=== PATIENT | male | born 1955 | race Caucasian/White ===

== ENCOUNTER 2017-05-17 02:47 | Emergency (ER) | payer MEDICARE ==
[~2017-05-17] VITALS: Ht 175.3 cm; Wt 72.6 kg
[~2017-05-17 02:47] MED LIST: ASPI325 PO; CEPH500 PO; Cleocin HCl150 MG PO; Crutch1 EACH MISC; DIAZ5; HYDACE10B; HYDACE5 PO; IBUP600; Mobic15 MG PO; Mobic7.5 MG PO; NAPR500; NAPR500 PO; NAPR550 PO; Norco 10-325 T1 EACH PO; OXYACE5T; OXYACE5T PO; OXYACE7.5T; OXYACE7.5T PO; OXYC5 PO; RXHYDACE PO; Tylenol325 MG PO; Veetids 500500 MG PO
[2017-11-18] MEDS ORDERED: Roxicodone5 MG PO (17:26)
[2018-03-15] MEDS ORDERED: Percocet 5-3251 EACH PO (23:48)
== END 2017-05-17 05:20 | disposition home or self-care (01) ==
LOC: ER 02:47
DX: S00.03XA Contusion of scalp, initial encounter (principal); W01.198A Fall on same level from slipping, tripping and stumbling with subsequent striking against other object, initial encounter; F17.210 Nicotine dependence, cigarettes, uncomplicated
CPT/HCPCS: 70450; 72125; 99284

== ENCOUNTER 2017-05-18 17:42 | Emergency (ER) | payer MEDICARE ==
[~2017-05-18] VITALS: Ht 175.3 cm; Wt 72.6 kg
[2017-11-18] MEDS ORDERED: Roxicodone5 MG PO (17:26)
[2018-03-15] MEDS ORDERED: Percocet 5-3251 EACH PO (23:48)
== END 2017-05-18 19:22 | disposition home or self-care (01) ==
LOC: ER 17:42
DX: S62.634A Displaced fracture of distal phalanx of right ring finger, initial encounter for closed fracture (principal); F17.210 Nicotine dependence, cigarettes, uncomplicated; W19.XXXA Unspecified fall, initial encounter
CPT/HCPCS: 29130; 73130; 99283

== ENCOUNTER 2017-07-30 13:54 | Emergency (ER) | payer MEDICARE ==
[~2017-07-30] VITALS: Ht 175.3 cm; Wt 72.6 kg
[2017-11-18] MEDS ORDERED: Roxicodone5 MG PO (17:26)
[2018-03-15] MEDS ORDERED: Percocet 5-3251 EACH PO (23:48)
== END 2017-07-30 15:49 | disposition home or self-care (01) ==
LOC: ER 13:54
DX: M67.432 Ganglion, left wrist (principal); F17.210 Nicotine dependence, cigarettes, uncomplicated
CPT/HCPCS: 99281

== ENCOUNTER 2017-11-22 00:32 | Emergency (ER) | payer MEDICARE ==
[~2017-11-22] VITALS: Ht 175.3 cm; Wt 70.3 kg
[~2017-11-22 00:32] MED LIST changes: +Roxicodone5 MG PO
== END 2017-11-22 03:30 | disposition left against medical advice (07) ==
LOC: ER 00:32
DX: Z53.21 Procedure and treatment not carried out due to patient leaving prior to being seen by health care provider (principal)

== ENCOUNTER 2018-01-14 13:00 | Emergency (ER) | payer MEDICARE ==
[~2018-01-14] VITALS: Ht 175.3 cm; Wt 70.3 kg
== END 2018-01-14 15:09 | disposition home or self-care (01) ==
LOC: ER 13:00
DX: S01.81XA Laceration without foreign body of other part of head, initial encounter (principal); F17.210 Nicotine dependence, cigarettes, uncomplicated; W01.0XXA Fall on same level from slipping, tripping and stumbling without subsequent striking against object, initial encounter
CPT/HCPCS: 12013; 99282

== ENCOUNTER 2018-03-19 14:07 | Emergency (ER) | payer MEDICARE ==
[~2018-03-19] VITALS: Ht 175.3 cm; Wt 68.0 kg
[~2018-03-19 14:07] MED LIST changes: +Percocet 5-3251 EACH PO
== END 2018-03-19 14:59 | disposition home or self-care (01) ==
LOC: ER 14:07
DX: M25.522 Pain in left elbow (principal); F17.200 Nicotine dependence, unspecified, uncomplicated; W19.XXXA Unspecified fall, initial encounter
CPT/HCPCS: 29105; 99283-25

== ENCOUNTER 2018-08-13 12:01 | Emergency (ER) | payer MEDICARE ==
[~2018-08-13] VITALS: Ht 175.3 cm; Wt 70.3 kg
[2018-08-13] MEDS ORDERED: Triamcinolone A15 G3 TOP (12:56)
[2018-08-13] MEDS ORDERED: Prednisone20 MG PO (12:56)
== END 2018-08-13 13:12 | disposition home or self-care (01) ==
LOC: ER 12:01
DX: T78.40XA Allergy, unspecified, initial encounter (principal); F17.200 Nicotine dependence, unspecified, uncomplicated
CPT/HCPCS: 99282; J1100

== ENCOUNTER 2018-12-03 20:50 | Emergency (ER) | payer MEDICARE ==
[~2018-12-03] VITALS: Ht 175.3 cm; Wt 70.3 kg
[~2018-12-03 20:50] MED LIST changes: +Prednisone20 MG PO; +Triamcinolone A15 G3 TOP
== END 2018-12-03 21:56 | disposition home or self-care (01) ==
LOC: ER 20:50
DX: S43.102A Unspecified dislocation of left acromioclavicular joint, initial encounter (principal); W22.8XXA Striking against or struck by other objects, initial encounter; F17.210 Nicotine dependence, cigarettes, uncomplicated
CPT/HCPCS: 73030; 99283-25; A9270

== ENCOUNTER 2019-02-16 15:52 | Emergency (ER) | payer MEDICARE ==
[~2019-02-16] VITALS: Ht 175.3 cm; Wt 70.3 kg
[2019-02-16] MEDS ORDERED: IBUP600 PO (17:05)
[2019-02-16] MEDS ORDERED: Ultram50 MG PO (17:05)
== END 2019-02-16 17:15 | disposition home or self-care (01) ==
LOC: ER 15:52
DX: S40.012A Contusion of left shoulder, initial encounter (principal); F17.210 Nicotine dependence, cigarettes, uncomplicated; W19.XXXA Unspecified fall, initial encounter
CPT/HCPCS: 73030; 99283-25; A9270-GY

== ENCOUNTER 2020-07-02 00:31 | Emergency (ER) | payer MEDICARE ==
[~2020-07-02] VITALS: Ht 177.8 cm; Wt 72.6 kg
[~2020-07-02 00:31] MED LIST changes: +IBUP600 PO; +Ultram50 MG PO
[2020-07-02 02:37] LABS: Influenza A, PCR NEGATIVE (NEGATIVE); Influenza B, PCR NEGATIVE (NEGATIVE); Resp Syncytial Virus, PCR NEGATIVE (NEGATIVE)
[2020-07-02 02:42] LABS: SARS-Cov-2 (COVID-19) PCR, MMC POSITIVE (NEGATIVE)
== END 2020-07-02 06:20 | disposition home or self-care (01) ==
LOC: ER 00:31
PROVIDERS: Emergency Medicine
DX: U07.1 COVID-19 (principal); R05 Cough; R06.02 Shortness of breath; R50.9 Fever, unspecified; R09.89 Other specified symptoms and signs involving the circulatory and respiratory systems
CPT/HCPCS: 0241U; 71046; 94640; 99284-25; A9270

== ENCOUNTER 2020-08-07 10:54 | Emergency (ER) | payer MEDICARE ==
[~2020-08-07] VITALS: Ht 175.3 cm; Wt 72.6 kg
[2020-08-07] MEDS ORDERED: Cyclobenzaprine5 MG PO (12:55)
[2020-08-07] MEDS ORDERED: IBUP400 PO (12:55)
== END 2020-08-07 13:17 | disposition home or self-care (01) ==
LOC: ER 10:54
DX: M54.5 Low back pain (principal); G89.29 Other chronic pain; E78.5 Hyperlipidemia, unspecified; Z79.899 Other long term (current) drug therapy
CPT/HCPCS: 96372; 99283-25; J1885

== ENCOUNTER 2020-09-25 01:44 | Emergency (ER) | payer MEDICARE ==
[~2020-09-25] VITALS: Ht 175.3 cm; Wt 70.3 kg
[~2020-09-25 01:44] MED LIST changes: +Cyclobenzaprine5 MG PO; +IBUP400 PO
[2020-09-25] MEDS ORDERED: AMOCLA875 PO (03:13)
== END 2020-09-25 03:29 | disposition home or self-care (01) ==
LOC: ER 01:44
DX: L03.011 Cellulitis of right finger (principal); F17.200 Nicotine dependence, unspecified, uncomplicated
CPT/HCPCS: 99282; A9270

== ENCOUNTER 2021-04-21 03:48 | Emergency (ER) | payer MEDICARE ==
[~2021-04-21] VITALS: Ht 175.3 cm; Wt 72.6 kg
[~2021-04-21 03:48] MED LIST changes: +AMOCLA875 PO
[2021-04-21 04:17] LABS: BASOPHILS ABSOLUTE AUTO 0.04 K/mm3 (0.00-0.23); BASOPHILS PERCENT AUTO 1 % (0-2); EOSINOPHILS ABSOLUTE AUTO 0.24 K/mm3 (0.00-0.68); EOSINOPHILS PERCENT AUTO 4 % (0-6); Hematocrit 37.6 % (37.0-53.0); Hemoglobin 12.3 g/dL (13.5-17.5); IMMATURE GRAN ABSOLUTE AUTO 0.01 K/mm3 (0.00-0.10); IMMATURE GRAN PERCENT AUTO 0 % (0-1); LYMPHOCYTES ABSOLUTE AUTO 1.72 K/mm3 (0.84-5.20); LYMPHOCYTES PERCENT AUTO 32 % (21-46); MONOCYTES ABSOLUTE AUTO 0.62 K/mm3 (0.16-1.47); MONOCYTES PERCENT AUTO 11 % (4-13); Mean Corpuscular HGB 30.2 pg (26.0-34.0); Mean Corpuscular HGB Conc 32.7 g/dL (31.5-36.5); Mean Corpuscular Volume 92 fL (80-100); NEUTROPHILS ABSOLUTE AUTO 2.83 K/mm3 (1.96-9.15); NEUTROPHILS PERCENT AUTO 52 % (41-73); Platelet Count 205 K/mm3 (150-400); RDW Coefficient Variation 12.7 % (11.7-14.2); RDW Standard Deviation 43.3 fL (35.1-46.3); Red Blood Cell Count 4.07 M/mm3 (4.30-5.90); White Blood Cell Count 5.46 K/mm3 (4.00-11.30)
[2021-04-21 04:40] LABS: Alanine Aminotransfer (ALT/SGP 21 U/L (12-78); Albumin, Blood 2.9 g/dL (3.4-5.0); Albumin/Globulin Ratio 0.7 (0.8-1.8); Alk Phos 88 U/L (50-136); Anion Gap 5 mmol/L (6-16); Aspartate Aminotrans (AST/SGOT 22 U/L (12-37); Bilirubin, Total 0.5 mg/dL (0.1-1.0); Blood Urea Nitrogen 23 mg/dL (8-24); Bun/Creatinine Ratio 24.9 (12.0-20.0); CO2, Blood 27 mmol/L (21-32); Calcium, Blood 8.7 mg/dL (8.5-10.1); Chloride, Blood 110 mmol/L (98-108); Creatinine, Blood 0.92 mg/dL (0.60-1.20); Globulin, Blood 4.1 g/dL (2.2-4.0); Glomerular Filtration Rate >60 (60-); Glucose, Blood 115 mg/dL (70-99); Potassium, Blood 3.9 mmol/L (3.5-5.5); Sodium, Blood 142 mmol/L (136-145)
== END 2021-04-21 05:56 | disposition home or self-care (01) ==
LOC: ER 03:48
PROVIDERS: Emergency Medicine
DX: K40.90 Unilateral inguinal hernia, without obstruction or gangrene, not specified as recurrent (principal); F17.200 Nicotine dependence, unspecified, uncomplicated
CPT/HCPCS: 36415; 74177; 80053; 83690; 85025; 96374-59; 96375; 99284-25; J2405; J3010; J7030; Q9967

== ENCOUNTER 2021-06-06 09:33 | Emergency (ER) | payer MEDICARE ==
[~2021-06-06] VITALS: Ht 182.9 cm; Wt 65.8 kg
== END 2021-06-06 10:48 | disposition home or self-care (01) ==
LOC: ER 09:33
DX: K40.90 Unilateral inguinal hernia, without obstruction or gangrene, not specified as recurrent (principal); F17.210 Nicotine dependence, cigarettes, uncomplicated
CPT/HCPCS: 99282

== ENCOUNTER 2021-07-16 08:54 | Day surgery (SDC) | payer MEDICARE ==
[~2021-07-16] VITALS: Ht 175.3 cm; Wt 71.8 kg
--- NOTE | 2021-07-16 13:34 | NUR ---
PT RECEIVED 2 PAIN PILLS. INCISIONS X3 REMAINED CDI. PT AWAKE , VERONICA PO. ALL BELONINGS RETURNED TO PATIENT Patient up to Ambulate independently. Gait steady. Discharge instructions reviewed with patient. Patient verbalizes understanding. Copy given to patient to take home. Patient States Post-Procedure ride home has been arranged. Discharged via wheelchair to private car for ride home. ICE PACKS SENT HOME WITH PATIENT. BOTH IV'S OUT SITES CLEAR CATHS INTACT.
== END 2021-07-16 22:46 | disposition home or self-care (01) ==
LOC: ORSCMMR 08:54 → ORD 10:30 → ORSCMMR 22:46
DX: K40.90 Unilateral inguinal hernia, without obstruction or gangrene, not specified as recurrent (principal); F17.210 Nicotine dependence, cigarettes, uncomplicated
CPT/HCPCS: 49650; S2900; A9270; C1781; J0690; J1100; J2250; J2405; J2704; J3010; J7120

== ENCOUNTER 2021-09-26 21:42 | Emergency (ER) | payer OTHER, MEDICARE ==
[~2021-09-26] VITALS: Ht 175.3 cm; Wt 72.6 kg
== END 2021-09-27 06:02 | disposition home or self-care (01) ==
LOC: ER 21:42
DX: S00.83XA Contusion of other part of head, initial encounter (principal); F17.210 Nicotine dependence, cigarettes, uncomplicated; W01.10XA Fall on same level from slipping, tripping and stumbling with subsequent striking against unspecified object, initial encounter; Z98.1 Arthrodesis status; Z96.653 Presence of artificial knee joint, bilateral
CPT/HCPCS: 70450; 99284-25

== ENCOUNTER 2022-11-01 10:23 | Emergency (ER) | payer MEDICARE ==
[~2022-11-01] VITALS: Ht 175.3 cm; Wt 68.0 kg
[2022-11-01 10:31] VITALS: BP 160/99
[2022-11-01] MEDS ORDERED: NAPROXEN250 M1 PO (11:09)
== END 2022-11-01 11:20 | disposition home or self-care (01) ==
LOC: ER 10:23
DX: M25.532 Pain in left wrist (principal); M19.032 Primary osteoarthritis, left wrist; F17.210 Nicotine dependence, cigarettes, uncomplicated; X50.0XXA Overexertion from strenuous movement or load, initial encounter; Z96.653 Presence of artificial knee joint, bilateral
CPT/HCPCS: 73110; 96374; 99283-25; J1885

== ENCOUNTER 2023-06-09 14:31 | Emergency (ER) | payer MEDICARE ==
[~2023-06-09] VITALS: Ht 175.3 cm; Wt 70.3 kg
[~2023-06-09 14:31] MED LIST changes: +NAPROXEN250 M1 PO
[2023-06-09 14:45] VITALS: BP 136/69
== END 2023-06-09 16:23 | disposition home or self-care (01) ==
LOC: ER 14:31
DX: S90.412A Abrasion, left great toe, initial encounter (principal); M79.672 Pain in left foot; M79.671 Pain in right foot; F17.210 Nicotine dependence, cigarettes, uncomplicated; Z59.00 Homelessness unspecified; X58.XXXA Exposure to other specified factors, initial encounter
CPT/HCPCS: 99283

== ENCOUNTER 2025-02-06 12:14 | Emergency (ER) | payer OTHER ==
[~2025-02-06] VITALS: Ht 175.3 cm; Wt 72.6 kg
[~2025-02-06 12:14] MED LIST changes: +OXAYDO5 M1 PO
[2025-02-06 12:25] VITALS: BP 133/77
== END 2025-02-06 15:22 | disposition home or self-care (01) ==
LOC: ER 12:14
DX: M25.552 Pain in left hip (principal); F17.210 Nicotine dependence, cigarettes, uncomplicated; W18.30XA Fall on same level, unspecified, initial encounter
CPT/HCPCS: 73502; 99283-25; A9270

== ENCOUNTER 2025-04-13 22:58 | Inpatient (IN) | payer OTHER ==
[~2025-04-13] VITALS: Ht 175.3 cm; Wt 70.3 kg
[2025-04-14] MEDS ORDERED: NS 1,000 ML IV SCH (01:50)
[2025-04-14 01:57] LABS: Prothrombin Time Results 10.4 Sec (9.7-11.5)
[2025-04-14 02:00] LABS: BASOPHILS ABSOLUTE AUTO 0.05 K/mm3 (0.00-0.23); BASOPHILS PERCENT AUTO 1 % (0-2); EOSINOPHILS ABSOLUTE AUTO 0.47 K/mm3 (0.00-0.68); EOSINOPHILS PERCENT AUTO 9 % (0-6); Hematocrit 30.6 % (37.0-53.0); Hemoglobin 10.7 g/dL (13.5-17.5); IMMATURE GRAN ABSOLUTE AUTO 0.04 K/mm3 (0.00-0.10); IMMATURE GRAN PERCENT AUTO 1 % (0-1); LYMPHOCYTES ABSOLUTE AUTO 0.68 K/mm3 (0.84-5.20); LYMPHOCYTES PERCENT AUTO 13 % (21-46); MONOCYTES ABSOLUTE AUTO 0.54 K/mm3 (0.16-1.47); MONOCYTES PERCENT AUTO 10 % (4-13); Mean Corpuscular HGB Conc 35.0 g/dL (31.5-36.5); Mean Corpuscular Volume 91 fL (80-100); NEUTROPHILS ABSOLUTE AUTO 3.53 K/mm3 (1.96-9.15); NEUTROPHILS PERCENT AUTO 66 % (41-73); NRBC ABSOLUTE 0.00 K/mm3 (0.00-0.02); NRBC Auto 0.0 /100 WBC (0.0-0.2); Platelet Count 177 K/mm3 (150-400); RDW Coefficient Variation 21.1 % (11.7-14.2); RDW Standard Deviation 69.2 fL (35.1-46.3)
[2025-04-14 02:06] LABS: Ethanol (Alcohol), Blood, Med <3 mg/dL; Uric Acid, Blood 5.9 mg/dL (3.5-7.2)
[2025-04-14 02:08] LABS: Alanine Aminotransfer (ALT/SGP 519 U/L (12-78); Albumin, Blood 2.5 g/dL (3.4-5.0); Albumin/Globulin Ratio 0.6 (0.8-1.8); Anion Gap 12 mmol/L (3-11); Aspartate Aminotrans (AST/SGOT 374 U/L (12-37); Bilirubin, Total 18.0 mg/dL (0.1-1.0); Blood Urea Nitrogen 37 mg/dL (8-24); CO2, Blood 19 mmol/L (21-32); Calcium, Blood 8.6 mg/dL (8.5-10.1); Chloride, Blood 116 mmol/L (98-108); Creatinine, Blood 1.32 mg/dL (0.60-1.20); Globulin, Blood 3.9 g/dL (2.2-4.0); Glucose, Blood 152 mg/dL (70-99); Potassium, Blood 3.6 mmol/L (3.5-5.5); Sodium, Blood 143 mmol/L (136-145); Total Protein, Blood 6.4 g/dL (6.4-8.2)
[2025-04-14 02:50] LABS: Source, Urine Clean Catch
[2025-04-14 02:54] LABS: Glucose Qualitative, Urine Neg (Neg); Ketones, Urine Neg (Neg); Leukocyte Esterase, Urine Neg (Neg); Protein, Urine 2+ (Neg); Specific Gravity, Urine 1.015 (1.003-1.022); Urobilinogen, Urine 2+ (Normal)
[2025-04-14 02:57] LABS: Bilirubin, Urine 2+ (Neg); Color, Urine Amber (P-Yellow)
[2025-04-14 03:00] LABS: Red Blood Cells, Urine Not Seen /hpf (0-2); White Blood Cells, Urine 0-2 /hpf (0-5)
[2025-04-14] MEDS ORDERED: Ondansetron HCl 2 MG / ML 2ML Vial IV PRN (05:05)
[2025-04-14] MEDS ORDERED: FLU VACC TS2025(65UP)/MF59C/PF 45 MCG/0.5 ML SYRINGE IM SCH (05:05)
[2025-04-14] MEDS ORDERED: CefTRIAXone Sodium 1,000 MG in NS 100 ML IV SCH (05:18)
[2025-04-14 05:19] LABS: Magnesium, Blood 2.0 mg/dL (1.6-2.4); Phosphorus, Blood 3.7 mg/dL (2.5-4.9)
[2025-04-14] MEDS ORDERED: Sodium Bicarb 8.4% Inj 100 MEQ in Sodium Chloride 0.45% 1,000 ML IV SCH (05:20)
[2025-04-14] MEDS ORDERED: Albumin (Human) 25gm/100ml 100 ML IV ONE (05:20)
[2025-04-14 07:03] VITALS: BP 134/75
--- NOTE | 2025-04-14 07:29 | NUR ---
PT TO ROOM 226 VIA BED. ALBUMIN INFUSING R ARM. SO IN ROOM WITH PT. PT ORIENTED TO ROOM. ADMISSION HISTORY AND MED REC COMPLETE. PRESENTLY DENIES COMPLAINTS.
[2025-04-14 11:35] VITALS: BP 111/61
[2025-04-14 11:36] VITALS: BP 111/61
--- NOTE | 2025-04-14 11:46 | NUR ---
PALLIATIVE CARE CONSULT RECEIVED FOR ADVANCED CARE PLANNING AND SYMPTOM MANAGEMENT. PT IS A 70 YEAR OLD MAN WITH NEWLY DISCOVERED PANCREATIC MASS. HE HAS ELECTED TO BE A FULL CODE, NO POLST/AD ON FILE. PLAN: ADDRESS SYMPTOMS, REVIEW CURRENT PLAN OF CARE AND BEGIN ADVANCED CARE PLANNING PATIENT IS AGREEABLE.
[2025-04-14 15:41] VITALS: BP 124/67
--- NOTE | 2025-04-14 17:10 | NUR ---
SHIFT SUMMARY PT RESTING. IV INFUSING R ARM. PT NPO. USING BATHROOM WITH ONE ASSIST AND WALKER. HR SINUS LYNETTE WITH FREQUENT PAC'S PER TELE. PLAN IS TO TRANSFER TO [facility] WHEN BED AVAILABLE.
[2025-04-14 19:49] VITALS: BP 136/63
[2025-04-14 20:55] LABS: SARS-Cov-2 (COVID-19) PCR, MMC NEGATIVE (NEGATIVE)
[2025-04-14 21:16] VITALS: BP 136/63
--- NOTE | 2025-04-15 00:08 | NUR ---
TRANSFER OF CARE [place] WAS A/OX 4 WHEN ASSESSED. NO ACUTE CHANGES FROM PREV SHIFT, [place] TRANSFER EARLY THIS SHIFT. REPORT CALLED AND GIVEN TO ARAMIS GASTELUM AT [facility]
== END 2025-04-14 22:10 | disposition short-term general hospital (02) | DRG 438 ==
LOC: ER 22:58 → SURS 22:59 → MEDS 22:59 → SURS 04-14 06:29
PROVIDERS: Emergency Medicine; ADMIT Internal Medicine
PROC: 3E03329 Introduction of Other Anti-infective into Peripheral Vein, Percutaneous Approach (ICD-10-PCS; principal; 2025-04-14)
PROC: 30233J1 Transfusion of Nonautologous Serum Albumin into Peripheral Vein, Percutaneous Approach (ICD-10-PCS; 2025-04-14)
DX: K86.89 Other specified diseases of pancreas (principal); K83.1 Obstruction of bile duct; E87.21 Acute metabolic acidosis; Z96.643 Presence of artificial hip joint, bilateral; N18.30 Chronic kidney disease, stage 3 unspecified; Z96.653 Presence of artificial knee joint, bilateral; F17.210 Nicotine dependence, cigarettes, uncomplicated; F10.10 Alcohol abuse, uncomplicated; J44.9 Chronic obstructive pulmonary disease, unspecified; J43.9 Emphysema, unspecified; E88.09 Other disorders of plasma-protein metabolism, not elsewhere classified; I45.10 Unspecified right bundle-branch block; E86.0 Dehydration; Z79.899 Other long term (current) drug therapy; Z98.890 Other specified postprocedural states; Z98.1 Arthrodesis status
CPT/HCPCS: 74177; 80053; 80320; 81001; 82140; 83690; 83735; 83880; 84100; 84550; 85025; 85610; 86301; 93005; 93010; 96361; 96365; 96367; 99285; A9270; G0378; J0696; J7030; P9047; Q9967; U0002